=== PATIENT | female | born 1940 | race African-American/Black ===

== ENCOUNTER 2017-03-20 11:44 | Inpatient (IN) | payer OTHER, MEDICAID ==
[~2017-03-20] VITALS: Ht 152.4 cm; Wt 60.8 kg
[~2017-03-20 11:44] MED LIST: ASPI-1160 PO; ATOR40TA70 PO; CLON0.1T PO; DILT240C91 PO; FAMO20TA8 PO; LISI-604 PO; NEPVIT PO
[2017-03-20] MEDS ORDERED: ASPIRIN 81MG TABLET PO ONE (13:15)
[2017-03-20] MEDS ORDERED: NITROGLYCERIN 0.4MG TABLET SL SL PRN (13:15)
[2017-03-20 14:11] LABS: HEMATOCRIT. 32.6 % (36.0-48.0); HEMOGLOBIN. 10.3 g/dL (12.0-16.0); MEAN CORPUSCULAR HEMOGLOBIN 25.2 pg (28.0-32.0); MEAN CORPUSCULAR VOLUME 79.5 fL (81.0-99.0); MEAN PLATELET VOLUME 7.4 fl (7.4-10.4); PLATELET 215 x1000/uL (130-400); RED CELL DISTRIBUTION WIDTH 28.8 % (11.6-14.6)
[2017-03-20 14:19] LABS: INR 1.1; PROTHROMBIN TIME 11.4 sec
[2017-03-20 14:28] LABS: CARBON DIOXIDE 33 mEq/L (21-32); CHLORIDE 99 mEq/L (98-107); TROPONIN I 0.05 ng/mL (0.00-0.04)
[2017-03-20 14:39] LABS: PLATELET ESTIMATE NORMAL
[2017-03-20 18:00] VITALS: BP 116/62
[2017-03-20 20:00] VITALS: BP 111/60
[2017-03-20] MEDS ORDERED: CLONIDINE 0.1MG TABLET PO PRN (20:45)
[2017-03-20] MEDS ORDERED: DEXTROSE 50% WATER 50ML SYRINGE IV PRN (20:45)
[2017-03-20] MEDS: BLOOD SUGAR DIAGNOSTIC STRIP TEST SCH (21:00)
[2017-03-20] MEDS: LISINOPRIL 20MG TABLET PO SCH (21:50)
[2017-03-20] MEDS: ATORVASTATIN CALCIUM 40MG TABLET PO SCH (21:50)
[2017-03-20] MEDS: INSULIN LISPRO 100 UNITS/ML SUBCUT SCH (22:04)
[2017-03-20] MEDS: ZOLPIDEM TARTRATE 5MG TABLET PO PRN (22:07)
[2017-03-21] VITALS (7 sets, daily range): BP systolic 97–125; BP diastolic 56–72
[2017-03-21 05:21] LABS: BASOPHILS % 0.5 % (0.0-2.0); EOSINOPHILS % 3.9 % (0.0-5.0); HEMATOCRIT. 33.1 % (36.0-48.0); HEMOGLOBIN. 10.4 g/dL (12.0-16.0); MEAN CORPUSCULAR HEMOGLOBIN 25.2 pg (28.0-32.0); MEAN PLATELET VOLUME 8.2 fl (7.4-10.4); MONOCYTES % 8.2 % (2.0-8.0); NEUTROPHILS % 77.4 % (40.0-76.0); PLATELET 227 x1000/uL (130-400); RED BLOOD CELL COUNT 4.13 mill/uL (4.2-5.4); RED CELL DISTRIBUTION WIDTH 28.6 % (11.6-14.6)
[2017-03-21] MEDS: FAMOTIDINE 20MG TABLET PO SCH (06:07)
[2017-03-21] MEDS: BLOOD SUGAR DIAGNOSTIC STRIP TEST SCH ×4 (06:23→20:58)
[2017-03-21] MEDS: INSULIN LISPRO 100 UNITS/ML SUBCUT SCH ×3 (06:27→20:57)
[2017-03-21 06:33] LABS: TROPONIN I 0.05 ng/mL (0.00-0.04)
[2017-03-21] MEDS: LISINOPRIL 20MG TABLET PO SCH ×2 (10:11→20:53)
[2017-03-21] MEDS: ASPIRIN 81MG TABLET PO SCH (10:11)
[2017-03-21] MEDS: FOLIC ACID/VITAMIN B COMP W-C TABLET PO SCH (10:11)
[2017-03-21] MEDS: DILTIAZEM HCL 240MG ER (24HR) PO SCH (10:12)
[2017-03-21 10:20] LABS: PHOSPHORUS 3.6 mg/dL (2.5-4.9)
[2017-03-21] MEDS ORDERED: HYDROCODONE/ACETAMINOPHEN 5/325MG TABLET PO PRN (10:45)
[2017-03-21] MEDS: PAROXETINE HCL 10MG TABLET PO SCH (12:13)
[2017-03-21] MEDS: SEVELAMER CARBONATE 800 MG TABLET PO SCH ×2 (12:13→17:10)
[2017-03-21 15:10] LABS: PLATELET ESTIMATE NORMAL
[2017-03-21] MEDS: CINACALCET HCL 30MG TABLET PO SCH (17:10)
[2017-03-21] MEDS: ATORVASTATIN CALCIUM 40MG TABLET PO SCH (20:53)
[2017-03-21] MEDS: ZOLPIDEM TARTRATE 5MG TABLET PO PRN (23:29)
[2017-03-22] VITALS (8 sets, daily range): BP systolic 97–121; BP diastolic 52–73
[2017-03-22] MEDS: FAMOTIDINE 20MG TABLET PO SCH ×2 (06:24→07:59)
[2017-03-22] MEDS: BLOOD SUGAR DIAGNOSTIC STRIP TEST SCH ×4 (06:26→20:56)
[2017-03-22] MEDS: INSULIN LISPRO 100 UNITS/ML SUBCUT SCH ×4 (06:47→20:56)
[2017-03-22] MEDS: SEVELAMER CARBONATE 800 MG TABLET PO SCH ×4 (07:58→17:16)
[2017-03-22] MEDS: DILTIAZEM HCL 240MG ER (24HR) PO SCH (07:59)
[2017-03-22] MEDS: FOLIC ACID/VITAMIN B COMP W-C TABLET PO SCH (07:59)
[2017-03-22] MEDS: ASPIRIN 81MG TABLET PO SCH (07:59)
[2017-03-22] MEDS: PAROXETINE HCL 10MG TABLET PO SCH (08:00)
[2017-03-22] MEDS: LISINOPRIL 20MG TABLET PO SCH ×2 (08:00→20:56)
[2017-03-22 12:47] LABS: HEMATOCRIT. 30.7 % (36.0-48.0); HEMOGLOBIN. 9.8 g/dL (12.0-16.0); MEAN CORPUSCULAR HEMOGLOBIN 25.3 pg (28.0-32.0); MEAN CORPUSCULAR VOLUME 79.5 fL (81.0-99.0); MEAN PLATELET VOLUME 8.6 fl (7.4-10.4); PLATELET 224 x1000/uL (130-400); RED BLOOD CELL COUNT 3.85 mill/uL (4.2-5.4); RED CELL DISTRIBUTION WIDTH 27.6 % (11.6-14.6)
[2017-03-22 13:22] LABS: PLATELET ESTIMATE NORMAL
[2017-03-22] MEDS: CINACALCET HCL 30MG TABLET PO SCH (17:16)
[2017-03-22] MEDS: ATORVASTATIN CALCIUM 40MG TABLET PO SCH (20:55)
[2017-03-23 00:50] VITALS: BP 121/56
[2017-03-23 04:00] VITALS: BP 123/59
[2017-03-23] MEDS: FAMOTIDINE 20MG TABLET PO SCH (07:01)
[2017-03-23] MEDS: BLOOD SUGAR DIAGNOSTIC STRIP TEST SCH ×4 (07:02→21:00)
[2017-03-23] MEDS: SEVELAMER CARBONATE 800 MG TABLET PO SCH ×3 (07:50→17:50)
[2017-03-23] MEDS: INSULIN LISPRO 100 UNITS/ML SUBCUT SCH ×4 (07:50→21:00)
[2017-03-23 08:00] VITALS: BP 104/61
[2017-03-23] MEDS: DILTIAZEM HCL 240MG ER (24HR) PO SCH (08:23)
[2017-03-23] MEDS: ASPIRIN 81MG TABLET PO SCH (08:23)
[2017-03-23] MEDS: FOLIC ACID/VITAMIN B COMP W-C TABLET PO SCH (08:23)
[2017-03-23] MEDS: LISINOPRIL 20MG TABLET PO SCH ×2 (08:24→21:00)
[2017-03-23] MEDS: PAROXETINE HCL 10MG TABLET PO SCH (08:24)
[2017-03-23 12:00] VITALS: BP 125/84
[2017-03-23 12:31] LABS: HEMATOCRIT. 28.7 % (36.0-48.0); HEMOGLOBIN. 9.2 g/dL (12.0-16.0); MEAN CORPUSCULAR HEMOGLOBIN 25.2 pg (28.0-32.0); MEAN CORPUSCULAR VOLUME 78.5 fL (81.0-99.0); MEAN PLATELET VOLUME 8.6 fl (7.4-10.4); PLATELET 232 x1000/uL (130-400); RED BLOOD CELL COUNT 3.66 mill/uL (4.2-5.4); RED CELL DISTRIBUTION WIDTH 28.2 % (11.6-14.6)
[2017-03-23 12:53] LABS: CARBON DIOXIDE 22 mEq/L (21-32); CHLORIDE 96 mEq/L (98-107)
[2017-03-23 13:17] LABS: PLATELET ESTIMATE NORMAL
[2017-03-23 16:00] VITALS: BP 100/60
[2017-03-23] MEDS: CINACALCET HCL 30MG TABLET PO SCH (17:00)
[2017-03-23] MEDS ORDERED: SODIUM CHLORIDE 0.9% 250 ML IV ONE (17:00)
[2017-03-23 20:30] VITALS: BP 98/50
[2017-03-23] MEDS ORDERED: EPOETIN ALFA 4000UNITS/ML VIAL SUBCUT SCH (21:00)
[2017-03-23] MEDS: ATORVASTATIN CALCIUM 40MG TABLET PO SCH (22:43)
[2017-03-24 00:06] VITALS: BP 100/57
[2017-03-24 04:00] VITALS: BP 99/63
[2017-03-24] MEDS: FAMOTIDINE 20MG TABLET PO SCH (07:01)
[2017-03-24] MEDS: INSULIN LISPRO 100 UNITS/ML SUBCUT SCH ×2 (07:50→12:31)
[2017-03-24 08:00] VITALS: BP 94/60
[2017-03-24] MEDS: BLOOD SUGAR DIAGNOSTIC STRIP TEST SCH ×2 (08:05→11:53)
[2017-03-24] MEDS: FOLIC ACID/VITAMIN B COMP W-C TABLET PO SCH (08:32)
[2017-03-24] MEDS: ASPIRIN 81MG TABLET PO SCH (08:33)
[2017-03-24] MEDS: PAROXETINE HCL 10MG TABLET PO SCH (08:33)
[2017-03-24] MEDS: DILTIAZEM HCL 240MG ER (24HR) PO SCH (08:33)
[2017-03-24] MEDS: LISINOPRIL 20MG TABLET PO SCH (08:33)
[2017-03-24] MEDS: SEVELAMER CARBONATE 800 MG TABLET PO SCH ×2 (08:34→12:46)
[2017-03-24] MEDS ORDERED: SODIUM CHLORIDE 0.9% 250 ML IV NR (10:00)
[2017-03-24 11:37] VITALS: BP 99/59
[2017-03-24 12:30] VITALS: BP 116/69
[2017-03-24] MEDS ORDERED: SODIUM CHLORIDE 0.9% 250 ML IV ONE (12:30)
[2017-03-24 15:43] VITALS: BP 119/60
== END 2017-03-24 16:35 | disposition home or self-care (01) | DRG 308 ==
LOC: ER 12:01 → 6WST 15:37 → ENRESERV 16:44
PROVIDERS: ADMIT Family Medicine; ATTEND Family Medicine
PROC: 5A1D60Z (ICD-10-PCS; principal; 2017-03-21)
DX: I48.0 Paroxysmal atrial fibrillation (principal); N18.6 End stage renal disease; G93.40 Encephalopathy, unspecified; I13.2 Hypertensive heart and chronic kidney disease with heart failure and with stage 5 chronic kidney disease, or end stage renal disease; N25.81 Secondary hyperparathyroidism of renal origin; E46 Unspecified protein-calorie malnutrition; J44.9 Chronic obstructive pulmonary disease, unspecified; I50.9 Heart failure, unspecified; E11.22 Type 2 diabetes mellitus with diabetic chronic kidney disease; D64.9 Anemia, unspecified; I49.5 Sick sinus syndrome; R07.89 Other chest pain; I27.2 Other secondary pulmonary hypertension; M19.90 Unspecified osteoarthritis, unspecified site; G89.29 Other chronic pain; M54.9 Dorsalgia, unspecified; K80.20 Calculus of gallbladder without cholecystitis without obstruction; F41.8 Other specified anxiety disorders; D72.829 Elevated white blood cell count, unspecified; F17.210 Nicotine dependence, cigarettes, uncomplicated; I45.81 Long QT syndrome; Z87.440 Personal history of urinary (tract) infections; Z88.8 Allergy status to other drugs, medicaments and biological substances; Z79.82 Long term (current) use of aspirin; Z79.899 Other long term (current) drug therapy; Z83.3 Family history of diabetes mellitus; Z86.73 Personal history of transient ischemic attack (TIA), and cerebral infarction without residual deficits; Z82.49 Family history of ischemic heart disease and other diseases of the circulatory system; Z99.2 Dependence on renal dialysis
CPT/HCPCS: 36415; 71010; 80048; 80053; 82962; 84100; 84484; 85025; 85610; 93005; 93306; 99285; J0885; J1815; J7030; J7050

== ENCOUNTER 2017-04-10 04:24 | Inpatient (IN) | payer OTHER, MEDICAID ==
[~2017-04-10] VITALS: Ht 152.4 cm; Wt 54.4 kg
[2017-04-10 09:06] LABS: BASOPHILS % 1.1 % (0.0-2.0); EOSINOPHILS % 1.1 % (0.0-5.0); HEMATOCRIT. 30.3 % (36.0-48.0); HEMOGLOBIN. 9.8 g/dL (12.0-16.0); LYMPHOCYTES % 7.6 % (20.0-50.0); MEAN CORPUSCULAR HEMOGLOBIN 26.2 pg (28.0-32.0); MEAN CORPUSCULAR VOLUME 80.9 fL (81.0-99.0); MONOCYTES % 8.1 % (2.0-8.0); NEUTROPHILS % 82.1 % (40.0-76.0); PLATELET 334 x1000/uL (130-400); RED BLOOD CELL COUNT 3.75 mill/uL (4.2-5.4); RED CELL DISTRIBUTION WIDTH 27.1 % (11.6-14.6)
[2017-04-10 09:15] LABS: INR 1.1; PARTIAL THROMBOPLASTIN TIME 29.6 sec (24.0-34.0)
[2017-04-10 09:22] LABS: TROPONIN I 0.05 ng/mL (0.00-0.04)
[2017-04-10] MEDS ORDERED: ASPIRIN 325MG EC TABLET PO ONE (10:30)
[2017-04-10 12:44] LABS: PLATELET ESTIMATE NORMAL
[2017-04-10 15:15] VITALS: BP 128/97
[2017-04-10 16:00] VITALS: BP 128/97
[2017-04-10] MEDS ORDERED: CEFTRIAXONE 1 G PREMIX 50 ML IV SCH (18:30)
[2017-04-10 20:00] VITALS: BP 118/61
[2017-04-10 23:00] VITALS: BP 149/71
[2017-04-10] MEDS: HYDROCODONE/ACETAMINOPHEN 5/325MG TABLET PO PRN (23:01)
[2017-04-11] MEDS: ASPIRIN 81MG TABLET PO SCH ×2 (00:06→09:41)
[2017-04-11] MEDS: DILTIAZEM HCL 240MG ER (24HR) PO SCH ×2 (00:06→09:41)
[2017-04-11 00:10] VITALS: BP 128/70
[2017-04-11] MEDS: LISINOPRIL 20MG TABLET PO SCH ×2 (00:11→12:54)
[2017-04-11] MEDS ORDERED: FOLIC ACID/VITAMIN B COMP W-C TABLET PO SCH (00:15)
[2017-04-11] MEDS ORDERED: DEXTROSE 50% WATER 50ML SYRINGE IV PRN (00:15)
[2017-04-11] MEDS ORDERED: CLONIDINE 0.1MG TABLET PO PRN (00:15)
[2017-04-11] MEDS: FAMOTIDINE 20MG TABLET PO SCH ×2 (00:38→06:53)
[2017-04-11] MEDS: CEFTRIAXONE 1 G PREMIX 50 ML IV SCH ×2 (00:38→21:51)
[2017-04-11 03:57] VITALS: BP 153/75
[2017-04-11] MEDS: HYDROCODONE/ACETAMINOPHEN 5/325MG TABLET PO PRN ×2 (04:02→22:38)
[2017-04-11 06:29] LABS: BASOPHILS % 0.9 % (0.0-2.0); EOSINOPHILS % 0.9 % (0.0-5.0); HEMATOCRIT. 31.6 % (36.0-48.0); HEMOGLOBIN. 9.9 g/dL (12.0-16.0); LYMPHOCYTES % 8.4 % (20.0-50.0); MEAN CORPUSCULAR HEMOGLOBIN 25.9 pg (28.0-32.0); MEAN CORPUSCULAR VOLUME 82.2 fL (81.0-99.0); MEAN PLATELET VOLUME 8.5 fl (7.4-10.4); MONOCYTES % 10.6 % (2.0-8.0); NEUTROPHILS % 79.2 % (40.0-76.0); PLATELET 322 x1000/uL (130-400); RED BLOOD CELL COUNT 3.84 mill/uL (4.2-5.4); RED CELL DISTRIBUTION WIDTH 29.1 % (11.6-14.6)
[2017-04-11] MEDS: BLOOD SUGAR DIAGNOSTIC STRIP TEST SCH ×4 (06:54→20:34)
[2017-04-11 07:15] LABS: PHOSPHORUS 2.9 mg/dL (2.5-4.9)
[2017-04-11] MEDS: INSULIN LISPRO 100 UNITS/ML SUBCUT SCH ×4 (07:47→20:36)
[2017-04-11 08:00] VITALS: BP 149/86
[2017-04-11] MEDS: FOLIC ACID/VITAMIN B COMP W-C TABLET PO SCH (09:41)
[2017-04-11 12:00] VITALS: BP 136/66
[2017-04-11] MEDS: PAROXETINE HCL 10MG TABLET PO SCH (12:53)
[2017-04-11] MEDS: SEVELAMER CARBONATE 800 MG TABLET PO SCH ×2 (12:53→17:24)
[2017-04-11 16:00] VITALS: BP 138/72
[2017-04-11] MEDS ORDERED: CINACALCET HCL 30MG TABLET PO SCH (18:00)
[2017-04-11] MEDS ORDERED: PARO10TA74 PO (18:46)
[2017-04-11 20:00] VITALS: BP 150/83
[2017-04-11] MEDS ORDERED: ENOXAPARIN 30MG/0.3ML SYR SUBCUT SCH (20:00)
[2017-04-11] MEDS ORDERED: EPOETIN ALFA 4000UNITS/ML VIAL SUBCUT NR (21:00)
[2017-04-11] MEDS ORDERED: ATORVASTATIN CALCIUM 40MG TABLET PO SCH (21:00)
[2017-04-11 21:31] LABS: EOSINOPHILS % 0.9 % (0.0-5.0); HEMATOCRIT. 31.2 % (36.0-48.0); HEMOGLOBIN. 9.8 g/dL (12.0-16.0); LYMPHOCYTES % 11.5 % (20.0-50.0); MEAN CORPUSCULAR HEMOGLOBIN 25.7 pg (28.0-32.0); MEAN CORPUSCULAR VOLUME 81.8 fL (81.0-99.0); MEAN PLATELET VOLUME 8.4 fl (7.4-10.4); MONOCYTES % 11.2 % (2.0-8.0); NEUTROPHILS % 75.4 % (40.0-76.0); PLATELET 344 x1000/uL (130-400); RED BLOOD CELL COUNT 3.81 mill/uL (4.2-5.4); RED CELL DISTRIBUTION WIDTH 28.5 % (11.6-14.6)
[2017-04-11 21:50] LABS: CARBON DIOXIDE 24 mEq/L (21-32); CHLORIDE 99 mEq/L (98-107)
[2017-04-12 00:15] VITALS: BP 141/59
[2017-04-12] MEDS: LISINOPRIL 20MG TABLET PO SCH ×2 (00:41→12:37)
[2017-04-12 04:00] VITALS: BP 160/88
[2017-04-12] MEDS: FAMOTIDINE 20MG TABLET PO SCH (06:16)
[2017-04-12] MEDS: BLOOD SUGAR DIAGNOSTIC STRIP TEST SCH ×2 (06:20→12:26)
[2017-04-12] MEDS: INSULIN LISPRO 100 UNITS/ML SUBCUT SCH ×2 (06:20→12:35)
[2017-04-12 07:32] LABS: BASOPHILS % 1.2 % (0.0-2.0); EOSINOPHILS % 1.8 % (0.0-5.0); HEMATOCRIT. 30.9 % (36.0-48.0); HEMOGLOBIN. 9.9 g/dL (12.0-16.0); LYMPHOCYTES % 13.2 % (20.0-50.0); MEAN CORPUSCULAR VOLUME 81.5 fL (81.0-99.0); MEAN PLATELET VOLUME 8.2 fl (7.4-10.4); MONOCYTES % 11.8 % (2.0-8.0); PLATELET 329 x1000/uL (130-400); RED BLOOD CELL COUNT 3.79 mill/uL (4.2-5.4); RED CELL DISTRIBUTION WIDTH 28.4 % (11.6-14.6)
[2017-04-12 08:00] VITALS: BP 152/83
[2017-04-12] MEDS: FOLIC ACID/VITAMIN B COMP W-C TABLET PO SCH (08:12)
[2017-04-12] MEDS: DILTIAZEM HCL 240MG ER (24HR) PO SCH (08:12)
[2017-04-12] MEDS: PAROXETINE HCL 10MG TABLET PO SCH (08:12)
[2017-04-12] MEDS: ASPIRIN 81MG TABLET PO SCH (08:12)
[2017-04-12] MEDS: SEVELAMER CARBONATE 800 MG TABLET PO SCH ×2 (08:14→12:36)
[2017-04-12 12:00] VITALS: BP 158/68
[2017-04-12 12:49] VITALS: BP 158/68
[2017-04-12 16:00] VITALS: BP 137/76
[2017-04-13] MEDS ORDERED: EPOETIN ALFA 4000UNITS/ML VIAL SUBCUT SCH (21:00)
== END 2017-04-12 16:50 | disposition home or self-care (01) | DRG 553 ==
LOC: ER 04:25 → 6WST 11:07 → EDBEDREQ 11:14 → ENRESERV 13:14 → 6WST 04-11 13:05
PROVIDERS: ADMIT Family Medicine; ATTEND Family Medicine
PROC: 5A1D00Z (ICD-10-PCS; principal; 2017-04-10)
DX: M19.041 Primary osteoarthritis, right hand (principal); N18.6 End stage renal disease; I13.2 Hypertensive heart and chronic kidney disease with heart failure and with stage 5 chronic kidney disease, or end stage renal disease; I50.32 Chronic diastolic (congestive) heart failure; N17.9 Acute kidney failure, unspecified; N25.81 Secondary hyperparathyroidism of renal origin; D72.829 Elevated white blood cell count, unspecified; E11.22 Type 2 diabetes mellitus with diabetic chronic kidney disease; E11.40 Type 2 diabetes mellitus with diabetic neuropathy, unspecified; F03.90 Unspecified dementia, unspecified severity, without behavioral disturbance, psychotic disturbance, mood disturbance, and anxiety; F17.210 Nicotine dependence, cigarettes, uncomplicated; F32.9 Major depressive disorder, single episode, unspecified; D63.8 Anemia in other chronic diseases classified elsewhere; K80.20 Calculus of gallbladder without cholecystitis without obstruction; F41.9 Anxiety disorder, unspecified; I27.2 Other secondary pulmonary hypertension; I48.0 Paroxysmal atrial fibrillation; J44.9 Chronic obstructive pulmonary disease, unspecified; Z82.49 Family history of ischemic heart disease and other diseases of the circulatory system; I25.2 Old myocardial infarction; Z83.3 Family history of diabetes mellitus; Z86.72 Personal history of thrombophlebitis; Z86.73 Personal history of transient ischemic attack (TIA), and cerebral infarction without residual deficits; Z87.440 Personal history of urinary (tract) infections; Z95.0 Presence of cardiac pacemaker; Z99.2 Dependence on renal dialysis; Z88.8 Allergy status to other drugs, medicaments and biological substances
CPT/HCPCS: 36415; 70450; 71010; 72125; 73130; 80048; 80053; 82962; 84100; 84484; 84550; 85025; 85610; 85730; 87040; 93005; 99285; J0696; J0885; J1650; J1815; J7030; J7050

== ENCOUNTER 2017-06-15 16:25 | Inpatient (IN) | payer OTHER, MEDICAID ==
[~2017-06-15] VITALS: Ht 152.4 cm; Wt 55.3 kg
[~2017-06-15 16:25] MED LIST changes: -CLON0.1T PO; -NEPVIT PO; +PARO10TA74 PO
[2017-06-15] MEDS ORDERED: ONDANSETRON HCL 4MG/2ML VIAL IV STA (17:42)
[2017-06-15 18:30] LABS: HEMATOCRIT. 32.9 % (36.0-48.0); HEMOGLOBIN. 10.3 g/dL (12.0-16.0); MEAN CORPUSCULAR HEMOGLOBIN 27.2 pg (28.0-32.0); MEAN CORPUSCULAR VOLUME 86.6 fL (81.0-99.0); MEAN PLATELET VOLUME 7.7 fl (7.4-10.4); PLATELET 185 x1000/uL (130-400); RED CELL DISTRIBUTION WIDTH 20.7 % (11.6-14.6)
[2017-06-15 18:32] LABS: CHLORIDE 96 mEq/L (98-107)
[2017-06-15 18:43] LABS: CARBON DIOXIDE 31 mEq/L (21-32)
[2017-06-15 18:57] LABS: INR 1.1
[2017-06-15] MEDS ORDERED: POTASSIUM CHLORIDE 20MEQ TABLET SR PO ONE (19:15)
[2017-06-15 20:24] LABS: PLATELET ESTIMATE NORMAL
[2017-06-16 04:00] VITALS: BP_SYST 127; BP_DIAS 59; BP_DIAS 95
[2017-06-16] MEDS ORDERED: HYDROCODONE/ACETAMINOPHEN 5/325MG TABLET PO PRN (05:30)
[2017-06-16] MEDS ORDERED: ACETAMINOPHEN 325MG TABLET PO PRN (05:30)
[2017-06-16] MEDS ORDERED: ONDANSETRON HCL 4MG/2ML VIAL IV PRN (05:30)
[2017-06-16] MEDS: ALBUTEROL (0.083%) 2.5MG/3ML NEB HHN SCH ×2 (07:55→11:58)
[2017-06-16 08:21] VITALS: BP 116/54
[2017-06-16] MEDS ORDERED: METHYLPREDNISOLONE SOD SUCC 40 MG/ML VIAL IV SCH (09:00)
[2017-06-16] MEDS ORDERED: ZOLPIDEM TARTRATE 5MG TABLET PO PRN (09:30)
[2017-06-16] MEDS ORDERED: FOLIC ACID/VITAMIN B COMP W-C TABLET PO SCH (09:30)
[2017-06-16 09:56] LABS: TROPONIN I 0.06 ng/mL (0.00-0.04)
[2017-06-16 09:59] LABS: BASOPHILS % 0.4 % (0.0-2.0); EOSINOPHILS % 1.2 % (0.0-5.0); HEMATOCRIT. 32.6 % (36.0-48.0); HEMOGLOBIN. 10.3 g/dL (12.0-16.0); LYMPHOCYTES % 16.9 % (20.0-50.0); MEAN CORPUSCULAR HEMOGLOBIN 27.2 pg (28.0-32.0); MEAN CORPUSCULAR VOLUME 86.3 fL (81.0-99.0); MEAN PLATELET VOLUME 8.4 fl (7.4-10.4); MONOCYTES % 10.5 % (2.0-8.0); PLATELET 203 x1000/uL (130-400); RED BLOOD CELL COUNT 3.78 mill/uL (4.2-5.4); RED CELL DISTRIBUTION WIDTH 21.6 % (11.6-14.6)
[2017-06-16] MEDS ORDERED: COLCHICINE 0.6MG TABLET PO NR (10:00)
[2017-06-16 12:05] LABS: PHOSPHORUS 3.1 mg/dL (2.5-4.9)
[2017-06-16 12:47] VITALS: BP 116/54
[2017-06-16 16:38] VITALS: BP 140/84
[2017-06-16] MEDS ORDERED: CINACALCET HCL 30MG TABLET PO SCH (19:00)
[2017-06-17] MEDS ORDERED: PAROXETINE HCL 10MG TABLET PO SCH (09:00)
[2017-06-17] MEDS ORDERED: ASPIRIN 81MG EC TABLET PO SCH (09:00)
[2017-06-17] MEDS ORDERED: EPOETIN ALFA 4000UNITS/ML VIAL SUBCUT SCH (21:00)
== END 2017-06-16 20:02 | disposition home or self-care (01) | DRG 640 ==
LOC: ER 16:25 → 8WST 19:15 → EDBEDREQ 19:36 → ENRESERV 06-16 02:19
PROVIDERS: ADMIT Family Medicine; ATTEND Family Medicine
DX: E87.6 Hypokalemia (principal); N18.6 End stage renal disease; E86.0 Dehydration; I13.2 Hypertensive heart and chronic kidney disease with heart failure and with stage 5 chronic kidney disease, or end stage renal disease; E46 Unspecified protein-calorie malnutrition; E11.22 Type 2 diabetes mellitus with diabetic chronic kidney disease; E11.40 Type 2 diabetes mellitus with diabetic neuropathy, unspecified; I27.2 Other secondary pulmonary hypertension; I48.0 Paroxysmal atrial fibrillation; J44.9 Chronic obstructive pulmonary disease, unspecified; D64.9 Anemia, unspecified; F17.210 Nicotine dependence, cigarettes, uncomplicated; F41.8 Other specified anxiety disorders; I49.3 Ventricular premature depolarization; I50.9 Heart failure, unspecified; M19.90 Unspecified osteoarthritis, unspecified site; I25.2 Old myocardial infarction; Z82.49 Family history of ischemic heart disease and other diseases of the circulatory system; Z83.3 Family history of diabetes mellitus; Z86.73 Personal history of transient ischemic attack (TIA), and cerebral infarction without residual deficits; Z95.0 Presence of cardiac pacemaker; Z99.2 Dependence on renal dialysis; Z88.8 Allergy status to other drugs, medicaments and biological substances; Z79.82 Long term (current) use of aspirin; Z79.899 Other long term (current) drug therapy; Z90.49 Acquired absence of other specified parts of digestive tract; Z68.23 Body mass index [BMI] 23.0-23.9, adult
CPT/HCPCS: 36415; 71010; 80048; 80053; 82962; 83605; 83690; 83735; 83880; 84100; 84484; 85025; 85610; 87040; 93005; 94640; 96374; 99285; J2405; J2920; J7611

== ENCOUNTER 2017-08-08 10:57 | Inpatient (IN) | payer OTHER, MEDICAID ==
[~2017-08-08] VITALS: Ht 152.4 cm; Wt 57.3 kg
[2017-08-08] MEDS ORDERED: ONDANSETRON HCL 4MG/2ML VIAL IV STA (12:57)
[2017-08-08] MEDS ORDERED: MORPHINE SULFATE 4 MG/ML CPJ (NOT FOR IM USE) IV STA (12:57)
[2017-08-08 13:12] LABS: HEMATOCRIT. 37.5 % (36.0-48.0); HEMOGLOBIN. 12.2 g/dL (12.0-16.0); MEAN CORPUSCULAR HEMOGLOBIN 27.2 pg (28.0-32.0); MEAN CORPUSCULAR VOLUME 83.4 fL (81.0-99.0); MEAN PLATELET VOLUME 8.9 fl (7.4-10.4); PLATELET 211 x1000/uL (130-400); RED BLOOD CELL COUNT 4.49 mill/uL (4.2-5.4); RED CELL DISTRIBUTION WIDTH 19.2 % (11.6-14.6)
[2017-08-08 13:26] LABS: CARBON DIOXIDE 19 mEq/L (21-32); CHLORIDE 93 mEq/L (98-107); TROPONIN I 0.05 ng/mL (0.00-0.04)
[2017-08-08 13:38] LABS: PLATELET ESTIMATE NORMAL
[2017-08-08] MEDS ORDERED: DEXTROSE 50% WATER 50ML SYRINGE IV SCH (13:45)
[2017-08-08] MEDS ORDERED: SODIUM BICARBONATE 8.4% 1 MEQ/ML 50ML SYR IV SCH (13:45)
[2017-08-08] MEDS ORDERED: INSULIN REGULAR (HUMULIN R) 300UNITS/3ML IV SCH (13:45)
[2017-08-08] MEDS ORDERED: SODIUM POLYSTYRENE SULFONATE 15 G/60 ML BOT PO SCH (13:45)
[2017-08-08] MEDS ORDERED: ALBUTEROL (0.083%) 2.5MG/3ML NEB HHN SCH (13:45)
[2017-08-08] MEDS ORDERED: SODIUM BICARBONATE 8.4% 1 MEQ/ML 50ML SYR IV ONE (14:53)
[2017-08-08 17:05] LABS: PHOSPHORUS 7.3 mg/dL (2.5-4.9)
[2017-08-08 17:23] VITALS: BP 134/106
[2017-08-08 17:45] VITALS: BP 134/106
[2017-08-08] MEDS: LISINOPRIL 20MG TABLET PO SCH (17:45)
[2017-08-08] MEDS ORDERED: DIPHENHYDRAMINE 50MG/ML VIAL IV PRN (17:45)
[2017-08-08] MEDS ORDERED: MAGNESIUM/ALUMINUM HYDROXIDE/SIMETHICONE 30ML UDC PO PRN (17:45)
[2017-08-08] MEDS ORDERED: ONDANSETRON HCL 4MG/2ML VIAL IV PRN (17:45)
[2017-08-08] MEDS ORDERED: CLONIDINE 0.1MG TABLET PO PRN (17:45)
[2017-08-08 20:00] VITALS: BP 116/104
[2017-08-08] MEDS: ATORVASTATIN CALCIUM 40MG TABLET PO SCH (21:51)
[2017-08-08 22:00] VITALS: BP 121/59
[2017-08-09] VITALS (15 sets, daily range): BP systolic 104–165; BP diastolic 44–114
[2017-08-09] MEDS: ACETAMINOPHEN 325MG TABLET PO PRN ×3 (01:48→13:41)
[2017-08-09] MEDS: FAMOTIDINE 20MG TABLET PO SCH (05:59)
[2017-08-09 06:33] LABS: HEMATOCRIT. 34.4 % (36.0-48.0); HEMOGLOBIN. 11.4 g/dL (12.0-16.0); MEAN CORPUSCULAR HEMOGLOBIN 27.2 pg (28.0-32.0); MEAN CORPUSCULAR VOLUME 82.4 fL (81.0-99.0); PLATELET 180 x1000/uL (130-400); RED BLOOD CELL COUNT 4.18 mill/uL (4.2-5.4); RED CELL DISTRIBUTION WIDTH 19.1 % (11.6-14.6)
[2017-08-09] MEDS: ASPIRIN 81MG TABLET PO SCH (08:57)
[2017-08-09] MEDS: PAROXETINE HCL 10MG TABLET PO SCH (08:57)
[2017-08-09] MEDS: DILTIAZEM HCL 240MG ER (24HR) PO SCH (08:59)
[2017-08-09] MEDS: LISINOPRIL 20MG TABLET PO SCH ×2 (08:59→21:19)
[2017-08-09] MEDS: SODIUM CHLORIDE 0.9% INJ 3ML FLUSH IVF SCH ×2 (09:02→22:00)
[2017-08-09] MEDS ORDERED: CLONIDINE HCL 0.2MG/24HR PATCH TD SCH (12:00)
[2017-08-09] MEDS: FOLIC ACID/VITAMIN B COMP W-C TABLET PO SCH (13:24)
[2017-08-09 13:37] LABS: PLATELET ESTIMATE NORMAL
[2017-08-09] MEDS ORDERED: HYDROCODONE/ACETAMINOPHEN 5/325MG TABLET PO PRN (14:30)
[2017-08-09] MEDS: ATORVASTATIN CALCIUM 40MG TABLET PO SCH (21:19)
[2017-08-10] VITALS (13 sets, daily range): BP systolic 124–156; BP diastolic 1–99
[2017-08-10 06:15] LABS: HEMATOCRIT. 34.7 % (36.0-48.0); HEMOGLOBIN. 11.3 g/dL (12.0-16.0); MEAN CORPUSCULAR HEMOGLOBIN 27.2 pg (28.0-32.0); MEAN CORPUSCULAR VOLUME 83.4 fL (81.0-99.0); MEAN PLATELET VOLUME 8.8 fl (7.4-10.4); PLATELET 180 x1000/uL (130-400); RED BLOOD CELL COUNT 4.15 mill/uL (4.2-5.4); RED CELL DISTRIBUTION WIDTH 19.2 % (11.6-14.6)
[2017-08-10] MEDS: FAMOTIDINE 20MG TABLET PO SCH (06:46)
[2017-08-10] MEDS: PAROXETINE HCL 10MG TABLET PO SCH (08:55)
[2017-08-10] MEDS: FOLIC ACID/VITAMIN B COMP W-C TABLET PO SCH (08:55)
[2017-08-10] MEDS: ASPIRIN 81MG TABLET PO SCH (08:55)
[2017-08-10] MEDS: DILTIAZEM HCL 240MG ER (24HR) PO SCH (09:00)
[2017-08-10] MEDS: LISINOPRIL 20MG TABLET PO SCH ×2 (09:00→21:14)
[2017-08-10 12:13] LABS: PLATELET ESTIMATE NORMAL
[2017-08-10] MEDS: ATORVASTATIN CALCIUM 40MG TABLET PO SCH (21:13)
== END 2017-08-10 21:35 | disposition home or self-care (01) | DRG 70 ==
LOC: ER 11:00 → 5EST 14:41 → ENRESERV 15:03 → 5EST 17:14
PROVIDERS: ADMIT Internal Medicine; ATTEND Internal Medicine
PROC: 5A1D70Z Performance of Urinary Filtration, Intermittent, Less than 6 Hours Per Day (ICD-10-PCS; principal; 2017-08-10)
DX: G93.49 Other encephalopathy (principal); N18.6 End stage renal disease; I13.2 Hypertensive heart and chronic kidney disease with heart failure and with stage 5 chronic kidney disease, or end stage renal disease; E87.5 Hyperkalemia; I48.0 Paroxysmal atrial fibrillation; E11.22 Type 2 diabetes mellitus with diabetic chronic kidney disease; E11.649 Type 2 diabetes mellitus with hypoglycemia without coma; E86.0 Dehydration; I27.20 Pulmonary hypertension, unspecified; I48.92 Unspecified atrial flutter; I49.5 Sick sinus syndrome; D63.8 Anemia in other chronic diseases classified elsewhere; E86.1 Hypovolemia; M11.20 Other chondrocalcinosis, unspecified site; F32.9 Major depressive disorder, single episode, unspecified; I25.10 Atherosclerotic heart disease of native coronary artery without angina pectoris; I50.9 Heart failure, unspecified; J44.9 Chronic obstructive pulmonary disease, unspecified; M19.90 Unspecified osteoarthritis, unspecified site; Z82.49 Family history of ischemic heart disease and other diseases of the circulatory system; Z99.2 Dependence on renal dialysis; Z83.3 Family history of diabetes mellitus; Z86.73 Personal history of transient ischemic attack (TIA), and cerebral infarction without residual deficits; Z79.899 Other long term (current) drug therapy; Z90.49 Acquired absence of other specified parts of digestive tract; Z91.19 Patient's noncompliance with other medical treatment and regimen; Z91.15 Patient's noncompliance with renal dialysis; Z95.0 Presence of cardiac pacemaker; Z88.8 Allergy status to other drugs, medicaments and biological substances; Z79.82 Long term (current) use of aspirin
CPT/HCPCS: 36415; 71010; 76705; 80048; 80053; 82962; 83690; 84100; 84484; 85025; 93005; 96372; 96374; 96375; 97162; 99291; A6261; J1815; J2270; J2405; J3490; J7030; J7611

== ENCOUNTER 2017-08-11 07:49 | Inpatient (IN) | payer OTHER, MEDICAID ==
[~2017-08-11] VITALS: Ht 152.4 cm; Wt 59.9 kg
[2017-08-11] MEDS ORDERED: SODIUM CHLORIDE 0.9% 500 ML IV ONE (08:45)
[2017-08-11 08:54] LABS: HEMATOCRIT. 41.7 % (36.0-48.0); HEMOGLOBIN. 12.9 g/dL (12.0-16.0); MEAN CORPUSCULAR HEMOGLOBIN 26.4 pg (28.0-32.0); MEAN CORPUSCULAR VOLUME 85.1 fL (81.0-99.0); MEAN PLATELET VOLUME 8.6 fl (7.4-10.4); PLATELET 189 x1000/uL (130-400); RED CELL DISTRIBUTION WIDTH 19.5 % (11.6-14.6)
[2017-08-11 09:01] LABS: INR 1.1; PROTHROMBIN TIME 11.6 sec (9.4-11.6)
[2017-08-11 09:11] LABS: TROPONIN I 0.08 ng/mL (0.00-0.04)
[2017-08-11 09:27] LABS: PLATELET ESTIMATE NORMAL
[2017-08-11] MEDS ORDERED: IPRATROPIUM/ALBUTEROL 0.5-3(2.5)MG/3ML NEB INH PRN (15:00)
[2017-08-11] MEDS ORDERED: ONDANSETRON HCL 4MG/2ML VIAL IV PRN (15:00)
[2017-08-11] MEDS ORDERED: FUROSEMIDE 40MG/4ML VIAL IV SCH (15:00)
[2017-08-11] MEDS ORDERED: LORAZEPAM 1MG TABLET PO PRN (15:00)
[2017-08-11] MEDS: PAROXETINE HCL 10MG TABLET PO SCH (17:11)
[2017-08-11] MEDS: DILTIAZEM HCL 240MG ER (24HR) PO SCH (17:12)
[2017-08-11] MEDS: LISINOPRIL 20MG TABLET PO SCH ×2 (17:12→21:00)
[2017-08-11] MEDS: ENOXAPARIN 30MG/0.3ML SYR SUBCUT SCH (17:13)
[2017-08-11] MEDS: FAMOTIDINE 20MG TABLET PO SCH (17:17)
[2017-08-11 17:40] VITALS: BP 163/81
[2017-08-11] MEDS ORDERED: DIPHENHYDRAMINE 50MG CAPSULE PO PRN (18:45)
[2017-08-11 19:00] VITALS: BP 163/81
[2017-08-11 20:00] VITALS: BP 164/84
[2017-08-11] MEDS: CLONIDINE 0.1MG TABLET PO PRN (21:00)
[2017-08-11] MEDS: ZOLPIDEM TARTRATE 5MG TABLET PO PRN (21:01)
[2017-08-11] MEDS: ATORVASTATIN CALCIUM 40MG TABLET PO SCH (21:01)
[2017-08-11] MEDS ORDERED: SODIUM CHLORIDE 0.45% 1,000 ML IV SCH (22:30)
[2017-08-11] MEDS ORDERED: GABAPENTIN 100MG CAPSULE PO PRN (22:30)
[2017-08-11 23:41] LABS: TROPONIN I 0.07 ng/mL (0.00-0.04)
[2017-08-12] VITALS (12 sets, daily range): BP systolic 116–149; BP diastolic 50–72
[2017-08-12] MEDS: FAMOTIDINE 20MG TABLET PO SCH (06:37)
[2017-08-12] MEDS ORDERED: IOHEXOL-300 100 ML BOTTLE ONE (07:23)
[2017-08-12] MEDS ORDERED: LIDOCAINE HCL 1% 20ML VIAL (Pyxis) INJ ONE (07:23)
[2017-08-12] MEDS ORDERED: IOHEXOL-300 50 ML BOTTLE IV ONE (07:23)
[2017-08-12] MEDS ORDERED: SODIUM BICARBONATE 4% (2.4MEQ) 5ML VIAL IV ONE (07:23)
[2017-08-12] MEDS ORDERED: CEFAZOLIN 1000MG PREMIX 50 ML IV ONE ×2 (07:47→08:30)
[2017-08-12 07:49] LABS: HEMATOCRIT. 32.2 % (36.0-48.0); HEMOGLOBIN. 10.1 g/dL (12.0-16.0); MEAN CORPUSCULAR HEMOGLOBIN 26.4 pg (28.0-32.0); MEAN PLATELET VOLUME 9.5 fl (7.4-10.4); PLATELET 170 x1000/uL (130-400); RED BLOOD CELL COUNT 3.83 mill/uL (4.2-5.4); RED CELL DISTRIBUTION WIDTH 19.3 % (11.6-14.6)
[2017-08-12] MEDS ORDERED: HEPARIN 1000 UNITS/ML 10ML ONE (08:23)
[2017-08-12] MEDS ORDERED: FENTANYL CITRATE/PF 50MCG/ML 2ML VIAL ONE (08:24)
[2017-08-12] MEDS ORDERED: HEPARIN 5000 UNITS/ML VIAL IV ONE (08:45)
[2017-08-12] MEDS: DILTIAZEM HCL 240MG ER (24HR) PO SCH (09:00)
[2017-08-12] MEDS: ASPIRIN 81MG TABLET PO SCH (09:00)
[2017-08-12] MEDS: PAROXETINE HCL 10MG TABLET PO SCH (09:00)
[2017-08-12] MEDS: LISINOPRIL 20MG TABLET PO SCH ×2 (09:00→21:00)
[2017-08-12] MEDS ORDERED: FENTANYL CITRATE/PF 50MCG/ML 2ML VIAL IV ONE (09:15)
[2017-08-12 09:36] LABS: CARBON DIOXIDE 24 mEq/L (21-32); CHLORIDE 102 mEq/L (98-107); CREATINE KINASE 18 IU/L (26-192); TROPONIN I 0.07 ng/mL (0.00-0.04)
[2017-08-12 09:59] LABS: PLATELET ESTIMATE NORMAL
[2017-08-12] MEDS: HYDROCODONE/ACETAMINOPHEN 10/325MG TABLET PO PRN (14:56)
[2017-08-12] MEDS: ENOXAPARIN 30MG/0.3ML SYR SUBCUT SCH (16:00)
[2017-08-12] MEDS: ATORVASTATIN CALCIUM 40MG TABLET PO SCH (20:59)
[2017-08-12] MEDS: ZOLPIDEM TARTRATE 5MG TABLET PO PRN (21:00)
[2017-08-13] VITALS: BP 145/68
[2017-08-13 04:00] VITALS: BP 162/71
[2017-08-13] MEDS: HYDROCODONE/ACETAMINOPHEN 10/325MG TABLET PO PRN (04:56)
[2017-08-13] MEDS: CLONIDINE 0.1MG TABLET PO PRN (04:57)
[2017-08-13] MEDS: FAMOTIDINE 20MG TABLET PO SCH (06:20)
[2017-08-13 07:26] VITALS: BP 127/57
[2017-08-13] MEDS: DILTIAZEM HCL 240MG ER (24HR) PO SCH (10:14)
[2017-08-13] MEDS: LISINOPRIL 20MG TABLET PO SCH (10:14)
[2017-08-13] MEDS: PAROXETINE HCL 10MG TABLET PO SCH (10:15)
[2017-08-13] MEDS: ASPIRIN 81MG TABLET PO SCH (10:15)
[2017-08-13 11:17] VITALS: BP 147/68
[2017-08-13 15:13] VITALS: BP 140/62
[2017-08-13] MEDS: ENOXAPARIN 30MG/0.3ML SYR SUBCUT SCH (16:48)
[2017-08-13] MEDS ORDERED: DOCUSATE SODIUM 100MG CAPSULE PO SCH (17:00)
[2017-08-13 20:26] VITALS: BP 101/54
[2017-08-13] MEDS ORDERED: ASCORBIC ACID 250 MG TABLET PO SCH (21:00)
[2017-08-14] MEDS ORDERED: ZINC SULFATE 220 MG ( 50 ) CAPSULE PO SCH (09:00)
[2017-08-14] MEDS ORDERED: FOLIC ACID/VITAMIN B COMP W-C TABLET PO SCH (09:00)
== END 2017-08-13 21:27 | DRG 252 ==
LOC: ER 07:51 → 6EST 10:47 → ENRESERV 14:01 → 6WST 17:36
PROVIDERS: ADMIT Internal Medicine; ATTEND Internal Medicine
PROC: 05CY3ZZ Extirpation of Matter from Upper Vein, Percutaneous Approach (ICD-10-PCS; principal; 2017-08-12)
PROC: 057Y3ZZ Dilation of Upper Vein, Percutaneous Approach (ICD-10-PCS; 2017-08-12)
PROC: B51N1ZZ Fluoroscopy of Left Upper Extremity Veins using Low Osmolar Contrast (ICD-10-PCS; 2017-08-12)
PROC: B3111ZZ Fluoroscopy of Right Brachiocephalic-Subclavian Artery using Low Osmolar Contrast (ICD-10-PCS; 2017-08-12)
PROC: B5181ZZ Fluoroscopy of Superior Vena Cava using Low Osmolar Contrast (ICD-10-PCS; 2017-08-12)
PROC: B51W1ZZ Fluoroscopy of Dialysis Shunt/Fistula using Low Osmolar Contrast (ICD-10-PCS; 2017-08-12)
PROC: 5A1D70Z Performance of Urinary Filtration, Intermittent, Less than 6 Hours Per Day (ICD-10-PCS; 2017-08-13)
DX: T82.868A Thrombosis due to vascular prosthetic devices, implants and grafts, initial encounter (principal); N18.6 End stage renal disease; I13.2 Hypertensive heart and chronic kidney disease with heart failure and with stage 5 chronic kidney disease, or end stage renal disease; I27.20 Pulmonary hypertension, unspecified; E11.22 Type 2 diabetes mellitus with diabetic chronic kidney disease; I48.0 Paroxysmal atrial fibrillation; I48.92 Unspecified atrial flutter; I49.5 Sick sinus syndrome; S30.0XXA Contusion of lower back and pelvis, initial encounter; D64.9 Anemia, unspecified; Y84.1 Kidney dialysis as the cause of abnormal reaction of the patient, or of later complication, without mention of misadventure at the time of the procedure; D72.829 Elevated white blood cell count, unspecified; W01.0XXA Fall on same level from slipping, tripping and stumbling without subsequent striking against object, initial encounter; F17.210 Nicotine dependence, cigarettes, uncomplicated; F32.9 Major depressive disorder, single episode, unspecified; J44.9 Chronic obstructive pulmonary disease, unspecified; I25.10 Atherosclerotic heart disease of native coronary artery without angina pectoris; K80.20 Calculus of gallbladder without cholecystitis without obstruction; M19.90 Unspecified osteoarthritis, unspecified site; R56.9 Unspecified convulsions; Z86.73 Personal history of transient ischemic attack (TIA), and cerebral infarction without residual deficits; Z90.49 Acquired absence of other specified parts of digestive tract; Z95.0 Presence of cardiac pacemaker; Z88.8 Allergy status to other drugs, medicaments and biological substances; Z79.82 Long term (current) use of aspirin; Z79.899 Other long term (current) drug therapy; Z91.19 Patient's noncompliance with other medical treatment and regimen; Y92.89 Other specified places as the place of occurrence of the external cause; Y93.89 Activity, other specified; Y99.8 Other external cause status; Y83.8 Other surgical procedures as the cause of abnormal reaction of the patient, or of later complication, without mention of misadventure at the time of the procedure
CPT/HCPCS: 36415; 36905; 71010; 72170; 80048; 80053; 82550; 83735; 84100; 84443; 84484; 85025; 85610; 93005; 94664; 96360; 96361; 97162; 97166; 99285; A6261; C1725; C1766; C1769; C2630; J0690; J1644; J1650; J1940; J3010; J3490; J7030; J7040; J7050; J7620; Q9967